=== PATIENT | female | born 1955 | race African-American/Black ===

== ENCOUNTER 2024-01-04 05:23 | Emergency (ER) | payer OTHER ==
[2024-01-04 05:52] VITALS: BMI 56.5
[2024-01-04] MEDS: ACETAMINOPHEN 1000 MG/100 ML BAG IVPB ONE ×2 (06:00→07:21)
[2024-01-04 06:13] LABS: BASO % 0.6 % (0-2.0); EOS % 2.9 % (0-4.5); HEMATOCRIT 35.5 % (32.4-45.2); HEMOGLOBIN 11.3 GM/dL (10.7-15.3); LYMPH % 27.4 % (8-40); MCH 25.4 pg (25.7-33.7); MEAN CELL VOLUME 79.4 fl (80-96); MEAN PLT VOLUME 9.9 fl (7.5-11.1); MONO % 8.6 % (3.8-10.2); NEUT % 60.5 % (42.8-82.8); PLATELET COUNT 244 10^3/uL (134-434); RBC 4.47 M/mm3 (3.60-5.2); RDW 19.2 % (11.6-15.6); WHITE BLOOD COUNT 5.9 K/mm3 (4.0-10.0)
[2024-01-04 06:31] LABS: BLOOD UREA NITROGEN 13.6 mg/dL (7-18); CALCIUM 8.7 mg/dL (8.5-10.1)
[2024-01-04 06:34] LABS: CREATININE 0.9 mg/dL (0.55-1.3)
[2024-01-04 06:36] LABS: BILIRUBIN,TOTAL 0.6 mg/dL (0.2-1); TOT PROT 7.6 g/dl (6.4-8.2)
[2024-01-04 06:38] LABS: INR 1.17 (0.83-1.09); PROTHROMBIN TIME (PATIENT) 13.2 SEC (9.7-13.0)
[2024-01-04 06:40] LABS: ACTIVATED PTT 32.3 SECONDS (25.2-36.5)
[2024-01-04 08:35] LABS: EPI CELLS 1 /uL (0-25.1); HYALINE CASTS 0 /uL (0-3.1); PH,URINE 6.5 (5.0-8.0); URINE APPEARANCE CLEAR; URINE BACTERIA 361 /uL (0-1359); URINE BILIRUBIN NEGATIVE (NEGATIVE); URINE COLOR YELLOW; URINE GLUCOSE (UA) NEGATIVE (NEGATIVE); URINE KETONE NEGATIVE (NEGATIVE); URINE LEUK ESTERASE NEGATIVE (NEGATIVE); URINE NITRITE NEGATIVE (NEGATIVE); URINE PROTEIN NEGATIVE (NEGATIVE); URINE RBC 15 /uL (0-23.9); URINE UROBILINOGEN 0.2 mg/dL (0.2-1.0); URINE WBC 3 /uL (0-25.8)
[2024-01-04 15:46] VITALS: BP 185/86; PULSE 80; RESP 19; TEMP 98.7
== END 2024-01-04 16:32 | disposition home or self-care (01) ==
LOC: JER 05:23
PROC: 3E033NZ Introduction of Analgesics, Hypnotics, Sedatives into Peripheral Vein, Percutaneous Approach (ICD-10-PCS; principal; 2024-01-04)
DX: R10.30 Lower abdominal pain, unspecified (principal); R07.9 Chest pain, unspecified
CPT/HCPCS: 36415; 71045-TC-FY; 74177-TC; 80053; 81003; 83605; 83690; 84484; 85025; 85610; 85730; 86850; 86900; 86901; 87086; 87186; 93005; 93010; 99285-25; J0131; Q9967

== ENCOUNTER 2024-03-26 18:03 | Observation (INO) | payer OTHER ==
[2024-03-26 18:20] VITALS: BMI 66.1
[2024-03-26] MEDS ORDERED: LIDOCAINE 4% PATCH TP ONE (20:10)
[2024-03-26] MEDS ORDERED: ACETAMINOPHEN INJECTION 100 ML ONE (20:10)
[2024-03-26] MEDS: LIDOCAINE 4% PATCH TP ONE (20:23)
[2024-03-26] MEDS: ACETAMINOPHEN 1000 MG/100 ML BAG IVPB ONE (20:24)
[2024-03-26 20:25] LABS: BASO % 0.8 % (0-2.0); EOS % 1.9 % (0-4.5); HEMATOCRIT 38.1 % (32.4-45.2); HEMOGLOBIN 12.3 GM/dL (10.7-15.3); LYMPH % 19.1 % (8-40); MCH 25.4 pg (25.7-33.7); MCHC 32.2 g/dl (32.0-36.0); MEAN CELL VOLUME 78.9 fl (80-96); MONO % 5.2 % (3.8-10.2); PLATELET COUNT 267 10^3/uL (134-434); RBC 4.84 M/mm3 (3.60-5.2); RDW 21.2 % (11.6-15.6); WHITE BLOOD COUNT 8.9 K/mm3 (4.0-10.0)
[2024-03-26 20:26] LABS: ADD RBC MORPHOLOGY YES
[2024-03-26 20:46] LABS: POTASSIUM 3.9 mmol/L (3.5-5.1)
[2024-03-26 20:48] LABS: CALCIUM 9.3 mg/dL (8.5-10.1)
[2024-03-26 20:49] LABS: ALBUMIN 3.3 g/dl (3.4-5.0); BLOOD UREA NITROGEN 14.2 mg/dL (7-18)
[2024-03-26 20:53] LABS: BILIRUBIN,TOTAL 0.4 mg/dL (0.2-1); TOT PROT 8.6 g/dl (6.4-8.2)
[2024-03-26 20:54] LABS: ANISOCYTOSIS 0; HELMET CELLS 0; HOWELL-JOLLY BODIES 0; MACROCYTOSIS 0; OVALOCYTE 0; ROULEAU 0; SICKELED CELLS 0; TARGET CELLS 0; TEAR DROP CELLS 0; TOXIC GRANULATION 0
[2024-03-26 21:42] LABS: HIV INTERPRETATION NEGATIVE (NEGATIVE)
[2024-03-27 01:57] VITALS: RESP 18
[2024-03-27] MEDS: LIDOCAINE PATCH REMOVAL MC SCH ×2 (05:52→11:10)
[2024-03-27] MEDS: INSULIN ASPART SLIDING SCALE (NOVOLOG) 1 VIAL SQ SCH (06:44)
[2024-03-27] MEDS: HYDROCHLOROTHIAZIDE 12.5 MG CAPSULE (FP) PO SCH (09:46)
[2024-03-27] MEDS: ENOXAPARIN NA (PORCINE) 40 MG/0.4 ML DISP.SYRIN SQ SCH (09:46)
[2024-03-27] MEDS: amLODIPine BESYLATE 10 MG TABLET (FP) PO SCH (09:46)
[2024-03-27 09:56] LABS: HEMATOCRIT 34.7 % (32.4-45.2); HEMOGLOBIN 11.6 GM/dL (10.7-15.3); MCHC 33.5 g/dl (32.0-36.0); MEAN CELL VOLUME 77.7 fl (80-96); MEAN PLT VOLUME 10.1 fl (7.5-11.1); PLATELET COUNT 232 10^3/uL (134-434); RBC 4.47 M/mm3 (3.60-5.2); RDW 21.4 % (11.6-15.6); WHITE BLOOD COUNT 6.4 K/mm3 (4.0-10.0)
[2024-03-27] MEDS: SENNOSIDES 8.6MG TABLET (FP) PO SCH (09:58)
[2024-03-27 10:10] LABS: POTASSIUM 4.2 mmol/L (3.5-5.1)
[2024-03-27 10:13] LABS: ALBUMIN 3.1 g/dl (3.4-5.0); CALCIUM 9.3 mg/dL (8.5-10.1)
[2024-03-27 10:14] LABS: BLOOD UREA NITROGEN 14.6 mg/dL (7-18); MAGNESIUM 2.1 mg/dL (1.8-2.4)
[2024-03-27 10:17] LABS: CREATININE 0.9 mg/dL (0.55-1.3); PHOSPHOROUS 3.9 mg/dL (2.5-4.9)
[2024-03-27 10:18] LABS: BILIRUBIN,TOTAL 0.7 mg/dL (0.2-1); TOT PROT 7.8 g/dl (6.4-8.2)
[2024-03-27] MEDS ORDERED: ACETAMINOPHEN 325 MG TABLET (FP) PO PRN (15:52)
[2024-03-27] MEDS: LOSARTAN POTASSIUM 50 MG TABLET PO SCH (21:56)
[2024-03-27] MEDS: VALPROATE SODIUM 250 MG/5 ML UNIT DOSE CUP PO SCH (21:56)
[2024-03-27] MEDS ORDERED: MAGNESIUM 200 MG PO SCH (22:00)
[2024-03-28] MEDS: ARIPiprazole 15 MG TABLET PO SCH (09:48)
[2024-03-28 23:52] VITALS: BP 149/75; PULSE 76; TEMP 99
== END 2024-03-28 22:30 ==
LOC: JER 18:03 → UNDOADMOB 20:33 → JERBED 20:33 → J8W 03-27 00:37 → OBSVTOIN 03-27 00:59 → INTOOBSV 03-27 00:59 → J8W 03-27 14:48 → JERBED 03-27 14:48
PROVIDERS: ADMIT Internal Medicine; ATTEND Nurse Practitioner Acute Care
PROC: 3E033NZ Introduction of Analgesics, Hypnotics, Sedatives into Peripheral Vein, Percutaneous Approach (ICD-10-PCS; principal; 2024-03-27)
DX: R07.89 Other chest pain (principal); F20.9 Schizophrenia, unspecified; I10 Essential (primary) hypertension; E11.9 Type 2 diabetes mellitus without complications; M19.90 Unspecified osteoarthritis, unspecified site; N93.9 Abnormal uterine and vaginal bleeding, unspecified
CPT/HCPCS: 36415; 71045-TC-FY; 76830-TC; 80053; 80164; 82962; 83735; 84100; 84484; 85025; 85027; 86803; 87389; 87635; 93005; 93010; 93306-TC; 96374; 97116-GP; 97161-GP; 99285-25; G0378; J0131